=== PATIENT | male | born 1995 | race Asian ===

== ENCOUNTER 2017-06-15 16:07 | Emergency (ER) | payer OTHER ==
[~2017-06-15] VITALS: Ht 172.7 cm; Wt 90.6 kg
[2017-06-15 16:16] VITALS: BP 121/86
[2017-06-15] MEDS ORDERED: HYDROcodone/APAP 5/325 TABLET PO ONE (17:00)
[2017-06-15] MEDS ORDERED: BACITRACIN ZINC OINT 500U/GM, 0.9 GM ONE (17:04)
[2017-06-15] MEDS ORDERED: HYDROcodone/APAP 5/325 TABLET ONE (17:23)
== END 2017-06-15 19:20 | disposition home or self-care (01) ==
LOC: ED 18:45
DX: S43.101A Unspecified dislocation of right acromioclavicular joint, initial encounter (principal); S60.512A Abrasion of left hand, initial encounter; S20.211A Contusion of right front wall of thorax, initial encounter; V29.49XA Motorcycle driver injured in collision with other motor vehicles in traffic accident, initial encounter; Y93.55 Activity, bike riding; Y99.8 Other external cause status; Y92.488 Other paved roadways as the place of occurrence of the external cause
CPT/HCPCS: 99284